=== PATIENT | female | born 1990 | race Caucasian/White ===

== ENCOUNTER 2016-12-05 16:10 | Emergency (ER) | payer SELFPAY ==
[2016-12-05 16:47] VITALS: BP 136/83
--- NOTE | 2016-12-05 18:33 | UC ---
Complaint Female HPI - HPI Summary HPI Summary: SINCE 11/28/16 HAS HAD BURNING AND THROBBING WITH URINATION, WELL SOME BACK PAIN, AND BLADDER URGENCY AND PRESSURE. HAS UTIS FREQUENTLY, HAD ONE LAST MONTH. - History Of Current Complaint Chief Complaint: UCGU Stated Complaint: POSS UTI Time Seen by Provider: 12/05/16 17:43 Hx Obtained From: Patient, Family/Preflight Inspector Hx Last Menstrual Period: 11/18/16 ?: No Onset/Duration: Gradual Onset, Lasting Weeks, Still Present Timing: Intermittent Severity Initially: Mild Severity Currently: Moderate Pain Intensity: 0 Pain Scale Used: 0-10 Numeric Character: Dull, Burning Aggravating Factor(s): Urination Associated Signs And Symptoms: Positive: Back Pain. Negative: Fever, Vaginal Bleeding/Discharge, Vaginal Discharge, Nausea, Vomiting(# Of Episodes =) - Risk Factors Ectopic Risk Factor: Negative Ovarian Torsion Risk Factor: Negative - Allergies/Home Medications Allergies/Adverse Reactions: Allergies Allergy/AdvReac Type Severity Reaction Status Date / Time Cephalexin [From Keflex] Allergy Severe Anaphylatic Verified 12/05/16 16:47 Shock Amoxicillin Allergy Anaphylatic Verified 12/05/16 16:47 Shock Nitrofurantoin Allergy Hives Verified 12/05/16 16:47 [From Macrobid] Penicillins Allergy Anaphylatic Verified 12/05/16 16:47 Shock PMH/Surg Hx/FS Hx/Imm Hx Previously Healthy: Yes Endocrine History Of: Denies: Diabetes, Thyroid Disease Cardiovascular History Of: Denies: Cardiac Disorders, Hypertension, Congestive Heart Failure Respiratory History Of: Reports: Asthma Denies: COPD GI/ History Of: Reports: Kidney Stones Denies: Ulcer, Renal Disease - HYDRO NO SURGERY - Surgical History Surgical History: Yes Surgery Procedure, Year, and Place: APPENDECTOMY, TONSILLECTOMY, SINUS POLYPS REMOVED, EAR TUBES, wisdom teeth right only - Family History Known Family History: Positive: None Negative: Renal Disease Family History: FHx of anxiety disorder. FHx of bipolar disorder - Social History Occupation: Employed Full-time Lives: With Family Alcohol Use: Occasionally Substance Use Type: Marijuana Smoking Status (MU): Current Every Day Smoker Type: Cigarettes Amount Used/How Often: 1/2 PPD Length of Time of Smoking/Using Tobacco: since 14 years of age Have You Smoked in the Last Year: Yes Household Exposure Type: Cigarettes - Immunization History Most Recent Influenza Vaccination: denies Most Recent Tetanus Shot: unk Most Recent Pneumonia Vaccination: never Review of Systems Constitutional: Fatigue Skin: Negative Eyes: Negative ENT: Negative Respiratory: Negative Cardiovascular: Negative Gastrointestinal: Negative Genitourinary: Dysuria, Frequency, Urgency Motor: Negative Neurovascular: Negative Musculoskeletal: Arthralgia, Myalgia Neurological: Negative Psychological: Negative All Other Systems Reviewed And Are Negative: Yes Physical Exam Triage Information Reviewed: Yes Appearance: No Pain Distress, Well-Nourished, Ill-Appearing - MILDLY Vital Signs: Initial Vital Signs Temp 98.8 F 12/05/16 16:39 Pulse 106 12/05/16 16:39 Resp 18 12/05/16 16:39 BP 136/83 12/05/16 16:39 Pulse Ox 98 12/05/16 16:39 Vital Signs Reviewed: Yes Eye Exam: Normal ENT Exam: Normal ENT: Positive: Normal ENT inspection, Hearing grossly normal, TMs normal Dental Exam: Normal Neck exam: Normal Respiratory Exam: Normal Respiratory: Positive: Chest non-tender, Lungs clear, Normal breath sounds, No respiratory distress Cardiovascular Exam: Normal Cardiovascular: Positive: RRR, No Murmur, Pulses Normal, Brisk Capillary Refill Abdominal Exam: Normal Abdomen Description: Positive: Nontender, No Organomegaly, Soft, CVA Tenderness (R), CVA Tenderness (L) Musculoskeletal Exam: Normal Musculoskeletal: Positive: Strength Intact, ROM Intact, No Edema Neurological Exam: Normal Psychological Exam: Normal Psychological: Positive: Normal Response To Family Skin Exam: Normal Complaint Female Dx - Differential Dx/Diagnosis Differential Diagnosis/HQI/PQRI: Ovarian Cyst, Renal Colic, Ureteral Stone, Urinary Tract Infection Provider Diagnoses: URINARY TRACT INFECTION W/ POSITIVE BILATERAL CV TENDERNESS Discharge - Discharge Plan Condition: Stable Disposition: HOME Prescriptions: Phenazopyridine TAB* [Pyridium 100 mg TAB*] 100 mg PO TID #15 tab Sulfamethox/Trimethoprim DS* [Bactrim DS 800/160 TAB*] 1 tab PO BID #20 tab Patient Education Materials: Urinary Tract Infection in Women (ED) Referrals: Daysi Muñiz MD [Primary Care Provider] -
== END 2016-12-05 18:12 | disposition home or self-care (01) ==
LOC: UCEAST 16:10
DX: N39.0 Urinary tract infection, site not specified (principal); Z87.440 Personal history of urinary (tract) infections; Z88.1 Allergy status to other antibiotic agents; Z88.0 Allergy status to penicillin; F17.210 Nicotine dependence, cigarettes, uncomplicated
CPT/HCPCS: 81003; 87077; 87086; 87186; 99212; G0463

== ENCOUNTER 2017-06-24 19:22 | Emergency (ER) | payer SELFPAY ==
[2017-06-24 19:29] VITALS: BP 118/79
[2017-06-24] MEDS ORDERED: DOXYcycline CAP(*) 100 MG PO ONE (20:06)
--- NOTE | 2017-06-24 20:15 | UC ---
Throat Pain/Nasal Joao HPI - HPI Summary HPI Summary: 1) TWO WEEKS OF SINUS CONGESTION, FACIAL PRESSURE, HEADACHE. FEVER TO DAY OF 101F. 2) SEVERAL DAYS OF UNPLEASANT SMELLING VAGINAL DISCHARGE. NO NEW SEXUAL PARTNERS NOT SEXUALLY ACTIVE IN LAST YEAR. CURRENTLY ON PERIOD. HAS HAD BV IN PAST CONCERN FOR SAME. - History of Current Complaint Chief Complaint: UCRespiratory Stated Complaint: SINUS CONGESTION, EAR ACHE, AND HEADACHE Time Seen by Provider: 06/24/17 19:31 Hx Obtained From: Patient Hx Last Menstrual Period: 4 days ago Onset/Duration: Gradual Onset, Lasting Weeks, Worse Since - 6 DAYS Severity: Moderate Cough: Nonproductive Associated Signs & Symptoms: Positive: Sinus Discomfort, Nasal Discharge, Fever - Epiglottits Risk Factors Epiglottis Risk Factors: Negative - Allergies/Home Medications Allergies/Adverse Reactions: Allergies Allergy/AdvReac Type Severity Reaction Status Date / Time Cephalexin [From Keflex] Allergy Severe Anaphylatic Verified 06/24/17 19:29 Shock Amoxicillin Allergy Anaphylatic Verified 06/24/17 19:29 Shock Nitrofurantoin Allergy Hives Verified 06/24/17 19:29 [From Macrobid] Penicillins Allergy Anaphylatic Verified 06/24/17 19:29 Shock PMH/Surg Hx/FS Hx/Imm Hx Previously Healthy: Yes - Surgical History Surgical History: Yes Surgery Procedure, Year, and Place: APPENDECTOMY, TONSILLECTOMY, SINUS POLYPS REMOVED, EAR TUBES, wisdom teeth right only - Family History Known Family History: Positive: None Negative: Renal Disease Family History: FHx of anxiety disorder. FHx of bipolar disorder - Social History Occupation: Employed Full-time Lives: With Family Alcohol Use: Occasionally Substance Use Type: Marijuana Smoking Status (MU): Current Every Day Smoker Type: Cigarettes Amount Used/How Often: 1/2 PPD Length of Time of Smoking/Using Tobacco: since 14 years of age Have You Smoked in the Last Year: Yes Household Exposure Type: Cigarettes Cessation Counseling: Patient Advised to Stop - Immunization History Most Recent Influenza Vaccination: denies Most Recent Tetanus Shot: unk Most Recent Pneumonia Vaccination: never Review of Systems Constitutional: Fever Skin: Negative Eyes: Negative ENT: Nasal Discharge, Sinus Congestion, Sinus Pain/Tenderness Respiratory: Cough Cardiovascular: Negative Gastrointestinal: Negative Genitourinary: Vaginal/Penile Discharge Motor: Negative Neurovascular: Negative Musculoskeletal: Negative Neurological: Negative Psychological: Negative All Other Systems Reviewed And Are Negative: Yes Physical Exam Triage Information Reviewed: Yes Appearance: No Pain Distress, Well-Nourished, Ill-Appearing Vital Signs: Initial Vital Signs Temp 98.6 F 06/24/17 19:26 Pulse 90 06/24/17 19:26 Resp 18 06/24/17 19:26 BP 118/79 06/24/17 19:26 Pulse Ox 99 06/24/17 19:26 Vital Signs Reviewed: Yes Eye Exam: Normal ENT: Positive: Nasal congestion, TM bulging, TM dull Dental Exam: Normal Neck exam: Normal Neck: Positive: Supple, No Lymphadenopathy Respiratory Exam: Other - COUGH Respiratory: Positive: Chest non-tender, Lungs clear, Normal breath sounds, No respiratory distress, No accessory muscle use Cardiovascular Exam: Normal Cardiovascular: Positive: RRR, No Murmur, Pulses Normal, Brisk Capillary Refill Abdominal Exam: Normal Abdomen Description: Positive: Nontender, No Organomegaly, Soft Musculoskeletal Exam: Normal Musculoskeletal: Positive: Strength Intact, ROM Intact, No Edema Neurological Exam: Normal Psychological Exam: Normal Skin Exam: Normal - Additional Comments PELVIC EXAM PERFORMED, NO LESIONS TO EXTERNAL GENITALIA NOTED. PATIENT CURRENTLY MENSTRUATING, VAGINAL VAULT CONTAINED BLOOD. SAMPLE OBTAINED. NO CERVICAL TENDERNESS. PATIENT TOLERATED PROCEDURE WELL. Throat Pain/Nasal Course/Dx - Differential Dx/Diagnosis Differential Diagnosis/HQI/PQRI: Pharyngitis, Sinusitis, URI Provider Diagnoses: SINUSITIS; BACTERIAL VAGINOSIS Discharge - Discharge Plan Condition: Stable Disposition: HOME Prescriptions: DOXYcycline CAP(*) [DOXYcycline 100MG CAP(*)] 100 mg PO BID #20 cap Metronidazole Vaginal 0.75 % VA BID #1 gel Patient Education Materials: Bacterial Vaginosis (ED), Sinusitis (ED) Referrals: Daysi Muñiz MD [Primary Care Provider] -
--- NOTE | 2017-06-26 11:34 | UC ---
Progress - Progress Note Progress Note: CALLED PT AND LEFT MESSAGE TO RETURN CALL. SWAB POSITIVE FOR TRICH. PT CURRENTLY ON DOXY FOR SINUSITIS AND METROGEL FOR BV. THIS DOES NOT PROVIDE ADEQUATE COVERAGE FOR TRICH. WOULD RECOMMEND ORAL METRONIDAZOLE EITHER 2 GRAMS X 1 OR 500MG TWICE DAILY X 7 DAYS. BOTH HAVE GOOD EFFECT BUT MORE CHANCE OF NAUSEA WITH ONE TIME DOSE. EITHER WAY, PT MUST NOTIFY SEXUAL PARTNERS AND HAVE THEM TREATED EVEN IF ASYMPTOMATIC AND ABSTAIN FROM SEX FOR AT LEAST 7 DAYS AFTER LAST DOSE OF ABX. - KIM KNOX MD
--- NOTE | 2017-06-27 07:55 | UC ---
Progress - Progress Note Progress Note: CALLED PT AND LEFT MESSAGE TO RETURN CALL. SWAB POSITIVE FOR TRICH. PT CURRENTLY ON DOXY FOR SINUSITIS AND METROGEL FOR BV. THIS DOES NOT PROVIDE ADEQUATE COVERAGE FOR TRICH. WOULD RECOMMEND ORAL METRONIDAZOLE EITHER 2 GRAMS X 1 OR 500MG TWICE DAILY X 7 DAYS. BOTH HAVE GOOD EFFECT BUT MORE CHANCE OF NAUSEA WITH ONE TIME DOSE. EITHER WAY, PT MUST NOTIFY SEXUAL PARTNERS AND HAVE THEM TREATED EVEN IF ASYMPTOMATIC AND ABSTAIN FROM SEX FOR AT LEAST 7 DAYS AFTER LAST DOSE OF ABX. - KIM KNOX MD --reviewed notes. Please contact Livier with above advice. Rx for metronidazole 500mg twice daily has been sent to her pharmacy.
== END 2017-06-24 20:13 | disposition home or self-care (01) ==
LOC: UCEAST 19:22
DX: J32.9 Chronic sinusitis, unspecified (principal); A59.01 Trichomonal vulvovaginitis
CPT/HCPCS: 87480; 87510; 87660; 99212; A9270-GY; G0463